=== PATIENT | female | born 1990 | race African-American/Black ===

== ENCOUNTER 2019-09-22 17:39 | Emergency (ER) | payer OTHER, SELFPAY ==
[2019-09-22 17:53] VITALS: BP 133/97; PULSE 88; RESP 18; TEMP 36.9; O2SAT 100
--- NOTE | 2019-09-22 18:10 | ED.CHESTPAIN ---
HPI - Chest Pain General Chief Complaint: Unspecified Stated Complaint: Chest Pain History of Present Illness HPI narrative: This is a 28-year-old -German female comes in complaining substernal chest pain states that it comes intermittently has been going on for the past 2 days. According to patient she started having left arm heaviness. Patient denies anything makes it better or worse patient denies having any hypertension or any cardiac issues patient denies being a smoker. Related Data Home Medications Medication Instructions Recorded Confirmed No Home Medications 09/22/19 09/22/19 Allergies Allergy/AdvReac Type Severity Reaction Status Date / Time Penicillins Allergy Unknown Hives / Verified 03/07/18 17:36 Red Face Review of Systems Review of Systems: Narrative: CONSTITUTIONAL: Denies fever, chills, or sweats. EYES: Denies visual changes, redness, or discharge. ENT: Denies rhinorrhea, congestion, sore throat, or otalgia. CARDIOVASCULAR: Reports chest pain, palpitations, or edema. RESPIRATORY: Denies cough or dyspnea. GASTROINTESTINAL: Denies abdominal pain, nausea, vomiting, or diarrhea. GENITOURINARY: Denies dysuria or hematuria. SKIN:[Denies rash or itching. MUSCULOSKELETAL:Denies back pain, joint pain, or myalgia. NEUROLOGIC: Denies headache, numbness, or weakness. PSYCHIATRIC:Denies anxiety or depression PMFSH Surgical History Surgical History (Updated 09/22/19 @ 21:32 by Micki Bush PA-C) History of Social History Social History (Updated 09/22/19 @ 21:34 by Micki Bush PA-C) Smoking status: Never smoker Substance use: never Gender identity (if verbalized by the patient): Female Comments At time as signature, I have reviewed and agree with nursing past medical, social, surgical and family history. Please see nursing chart for further information. There is no relevant family history pertinent to the presenting complaint. Exam Narrative: Exam Narrative: GENERAL:Well-appearing, well-nourished, and in no acute distress. HEAD:Normocephalic, atraumatic. EYES: PERRLA and EOMI. ENT: Nares clear, no rhinorrhea or epistaxis. Mucous membranes moist. NECK: Supple. CHEST: Clear to auscultation. No respiratory distress. HEART: Regular rate and rhythm. No murmur heard. Normal peripheral pulses. ABDOMEN: Soft, nontender, nondistended, normal active bowel sounds. EXTREMITIES: Normal range of motion. No edema. SKIN: Warm, dry, no rash. NEURO: No focal deficits. Alert and oriented x3. Essentially negative except for patient is reporting chest pain with left arm heaviness unable to duplicate the pain Course Vital Signs Vital signs: Vital Signs Temperature 98.5 F 09/22/19 17:53 Pulse Rate 88 09/22/19 17:53 Respiratory Rate 18 09/22/19 17:53 Blood Pressure 133/97 H 09/22/19 17:53 Pulse Oximetry 100 09/22/19 17:53 Temperature 98.5 F 09/22/19 17:53 Pulse Rate 88 09/22/19 17:53 Respiratory Rate 18 09/22/19 17:53 Blood Pressure 133/97 H 09/22/19 17:53 Pulse Oximetry 100 09/22/19 17:53 Discharge Plan Discharge Patient Disposition: Home, Self-Care Condition: Stable Prescriptions: No Action No Home Medications RF: 0 Interventions: Discharge Disposition Last Done: 09/22/19 18:15 Follow-up/Referrals: PHYSICIAN,POWER PLANT MANAGER [Primary Care Provider] - Discharge Date/Time: 09/22/19 18:15
--- NOTE | 2019-09-22 18:11 | PC.NURSE ---
ekg in progess and direct support staff on hold to give report to dominga miguel
--- NOTE | 2019-09-22 18:21 | ECG_ITS ---
Measurements Intervals [place] Rate: 85 P: 43 [place]: 137 QRS: 38 QRSD: 76 T: 39 QT: 376 QTc: 450 Interpretive Statements SINUS RHYTHM NORMAL ECG Electronically Signed On 09-22-2019 20:10:43 SNOWBOARD INSTRUCTOR by Wilmer Martin D.O.
== END 2019-09-22 18:15 | disposition home or self-care (01) ==
LOC: EXPCOLL 17:46
PROVIDERS: Emergency Provider Nurse Practitioner Family
DX: R07.89 Other chest pain (principal)
CPT/HCPCS: 93005; 99213; G0463

== ENCOUNTER 2019-09-22 18:37 | Emergency (ER) | payer OTHER, SELFPAY ==
--- NOTE | ~2019-09-22 | XR_ITS ---
EXAMINATION: XR chest 2V EXAM DATE: 09/22/2019 19:10 INDICATION: Left-sided chest pain. TECHNIQUE: Frontal and lateral projections of the chest obtained and reviewed. There is no prior lena dy for comparison. FINDINGS: The lungs are clear. There are no pleural effusions. The cardiomediastinal silhouette is within normal limits. There is no pneumothorax suspected. The bones and soft tissues are unremarkab le. IMPRESSION: Normal chest x-ray exam. Reviewed, dictated and finalized at location A. ARCH PROFESSOR IMPRESSION: Normal chest x-ray exam.
--- NOTE | 2019-09-22 18:38 | ECG_ITS ---
Measurements Intervals [place] Rate: 89 P: 50 [place]: 136 QRS: 35 QRSD: 80 T: 36 QT: 358 QTc: 437 Interpretive Statements SINUS RHYTHM NORMAL ECG Electronically Signed On 09-22-2019 20:10:31 MAJOR GIFTS DIRECTOR by Wilmer Martin D.O.
[2019-09-22 18:40] VITALS: BP 142/97; PULSE 90; RESP 18; TEMP 36.7; O2SAT 100
[2019-09-22 19:06] LABS: Basophils Percent Auto 0.5 % (0.2-1.2); Eosinophils Absolute Auto 0.1 K/mm3 (0-0.3); Eosinophils Percent Auto 1.9 % (0-4.4); Hematocrit 36.7 % (37.0-47.0); Hemoglobin 11.6 g/dL (12.0-15.0); Immature Granulocyte Absolute 0.02 K/mm3 (0.00-0.031); Immature Granulocyte Percent A 0.3 % (0-0.5); Lymphocytes Absolute Auto 1.81 K/mm3 (0.9-3.2); Lymphocytes Percent Auto 29.1 % (18.3-44.2); Mean Corpuscular HGB Conc 31.6 g/dl (32-36); Mean Corpuscular Hemoglobin 26.7 pg (26-34); Mean Corpuscular Volume 84.6 fl (80-100); Mean Platelet Volume 12.6 fl (7.4-10.4); Monocytes Absolute Auto 0.4 K/mm3 (0.1-0.6); Monocytes Percent Auto 6.3 % (2.6-8.5); Neutrophils Absolute Auto 3.9 K/mm3 (1.3-6.7); Neutrophils Percent Auto 61.9 % (45.5-73.1); Platelet Count Result 216 k/mm3 (150-375); Red Blood Count 4.34 M/mm3 (4.2-5.4); Red Cell Distribution Width 13.8 % (11.5-14.5); White Blood Count 6.2 K/mm3 (4.5-10.0)
[2019-09-22 19:16] LABS: INR 0.9; Partial Thromboplastin Time 28.5 SECONDS (22.3-36.8); Prothrombin Time 12.3 Seconds (11.1-14.7)
[2019-09-22 19:17] LABS: Blood Urea Nitrogen 14 mg/dL (7-17); Calcium 9.2 mg/dL (8.4-10.2); Carbon Dioxide 25 mmol/L (22-30); Chloride 99 mmol/L (98-107); Estimated CRCL calculation 84 ml/min; Estimated Glomerular Filt Rate > 60; Glucose 95 mg/dL (65-105); Potassium 3.9 mmol/L (3.4-5.0); Sodium 137 mmol/L (137-145)
[2019-09-22 19:42] LABS: Troponin I < 0.012 ng/mL (0.000-0.034)
[2019-09-22 20:34] VITALS: PULSE 106
[2019-09-22 20:36] VITALS: BP 146/101; PULSE 97; RESP 16; O2SAT 100
[2019-09-22] MEDS: ASPIRIN 81 MG CHEWABLE TABLET 324 MG PO (20:45)
--- NOTE | 2019-09-22 20:56 | PC.NURSE ---
CALLED LAB TO ADD ON D-DIMER
[2019-09-22 20:58] VITALS: BP 157/100; PULSE 82; RESP 16; O2SAT 100
[2019-09-22 21:12] LABS: D Dimer 0.27 ug/mL (<0.48)
--- NOTE | 2019-09-22 21:13 | ED.CHESTPAIN ---
HPI - Chest Pain General Chief Complaint: Chest Pain Stated Complaint: chest pain Time Seen by Provider: 09/22/19 20:37 Source: patient Mode of arrival: ambulatory Limitations: no limitations History of Present Illness HPI narrative: This is a 28 year old female that presents to the ER for chest pain x 2 days. Reports intermittent substernal chest pain that will last only for a couple seconds and then resolve on its own. Also reports that earlier she was having a weird feeling in her left arm. She was seen at the urgent care for this and sent here for further evaluation. Denies fever, cough, congestion, shortness of breath, or numbness. Related Data Home Medications Medication Instructions Recorded Confirmed No Home Medications 09/22/19 09/22/19 Allergies Allergy/AdvReac Type Severity Reaction Status Date / Time Penicillins Allergy Unknown Hives / Verified 03/07/18 17:36 Red Face Review of Systems Review of Systems: Narrative: CONSTITUTIONAL: Denies fever ENT: Denies rhinorrhea, congestion, sore throat CARDIOVASCULAR: Reports chest pain. Denies palpitations, or edema. RESPIRATORY: Denies cough or dyspnea. NEUROLOGIC: Denies numbness, or weakness. All systems reviewed & are unremarkable except as noted in HPI and below PMFSH Surgical History Surgical History (Updated 09/22/19 @ 21:32 by Micki Bush PA-C) History of Social History Social History (Updated 09/22/19 @ 21:34 by Micki Bush PA-C) Smoking status: Never smoker Substance use: never Gender identity (if verbalized by the patient): Female Exam Narrative: Exam Narrative: GENERAL: Well-appearing, well-nourished, and in no acute distress. HEAD: Normocephalic, atraumatic. EYES: EOMI. ENT: Nares clear, no rhinorrhea or epistaxis. Mucous membranes moist. Oropharynx without tonsillar hypertrophy exudate or other lesions. Bilateral TMs pearly gottlieb non-bulging NECK: Supple. No adenopathy or masses. No carotid bruits or JVD CHEST: Clear to auscultation. No respiratory distress. No wheezes rales or rhonchi HEART: Regular rate and rhythm. No murmur heard. Normal peripheral pulses. EXTREMITIES: Normal range of motion. No edema. Strength equal in bilateral upper extremities SKIN: Warm, dry, no rash. NEURO: No focal deficits. Alert and oriented x3. PSYCH: Normal mood and affect Course Vital Signs Vital signs: Vital Signs Temperature 98.1 F 09/22/19 18:40 Pulse Rate 90 09/22/19 18:40 Respiratory Rate 18 09/22/19 18:40 Blood Pressure 142/97 H 09/22/19 18:40 Pulse Oximetry 100 09/22/19 18:40 Temperature 98.1 F 09/22/19 18:40 Pulse Rate 82 09/22/19 20:58 Respiratory Rate 16 09/22/19 20:58 Blood Pressure 157/100 H 09/22/19 20:58 Pulse Oximetry 100 09/22/19 20:58 MDM - Chest Pain MDM Narrative Medical decision making narrative: Patient presents the emergency department for intermittent substernal chest pains over the last 2 days. Reports these pains only last for a couple of seconds. Patient's vitals are normal, other than mild elevation in blood pressure to the 130-140s/90s-100s. CBC with mild normocytic anemia. Metabolic panel is normal. Troponin and dimer are negative. EKG is normal. Chest x-ray without acute changes. Patient does not report any chest pain currently. Heart score is 1. Patient is stable and felt appropriate for further outpatient evaluation. She is to follow-up with her primary care doctor. Patient was given warnings to return to the ER Lab Data Attestation: I reviewed the patient's lab results. Result diagrams: 09/22/19 18:56 09/22/19 18:56 Labs: Lab Results 09/22/19 09/22/19 09/22/19 Range/Units 18:56 18:56 18:56 WBC 6.2 (4.5-10.0) K/mm3 RBC 4.34 (4.2-5.4) M/mm3 Hgb 11.6 L (12.0-15.0) g/dL Hct 36.7 L (37.0-47.0) % MCV 84.6 (80-100) fl MCH 26.7 (26-34) pg MCHC 31.6 L (32-36) g/dl RDW 13.8
[2019-09-22 22:41] VITALS: BP 136/94; PULSE 90; RESP 16; O2SAT 99
== END 2019-09-22 22:43 | disposition home or self-care (01) ==
PROVIDERS: Physician Assistant; Emergency Provider Emergency Medicine
DX: R07.2 Precordial pain (principal)
CPT/HCPCS: 36415; 71046; 80048; 84484; 85025; 85380; 85610; 85730; 93005; 99284; A9270

== ENCOUNTER 2019-11-09 19:43 | Emergency (ER) | payer OTHER, SELFPAY ==
[2019-11-09 19:51] VITALS: BP 149/82; PULSE 114; RESP 16; TEMP 37.3; O2SAT 99
--- NOTE | 2019-11-09 19:53 | ED.GENADULT ---
HPI - General Adult General Chief complaint: Abdominal Pain Stated complaint: chest/abd pain Time Seen by Provider: 11/09/19 19:53 Source: patient and RN notes reviewed Mode of arrival: ambulatory Limitations: no limitations History of Present Illness HPI narrative: 28 year old female who presents to [facility] care with intermittent episodes of upper epigastric pain radiating to her back since Friday. Patient denies any pain at present time, denies any shortness of breath, no radiating of pain to arms, no nausea or any episodes of diaphoresis. Patient states that she had episodes of upper epigastric and chest pain a month ago and was seen and evaluated in the ER with no cardiac problem identified, states has not followed up with her PCP. 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 MD complaint: upper epigastric pain Onset (ago): day(s) (4) Location: abdomen Radiation: back Severity: mild Quality: aching Pain Consistency: intermittent and now resolved Relieving factors: none Exacerbating factors: none Associated symptoms: denies other symptoms Treatments prior to arrival: none Related Data Allergies Allergy/AdvReac Type Severity Reaction Status Date / Time Penicillins Allergy Unknown Hives / Verified 03/07/18 17:36 Red Face Review of Systems Review of Systems: Narrative: CONSTITUTIONAL: Denies fever, chills, or sweats. EYES: Denies visual changes, redness, or discharge. ENT: Denies rhinorrhea, congestion, sore throat, or otalgia. CARDIOVASCULAR: Denies chest pain recently, no palpitations, or edema. RESPIRATORY: Denies cough or dyspnea. GASTROINTESTINAL: Denies abdominal pain at present intermittent episodes of upper epigastric pain radiating to back, no nausea, vomiting, or diarrhea.no feelings of heartburn or dyspepsia GENITOURINARY: Denies dysuria or hematuria. SKIN: Denies rash or itching. MUSCULOSKELETAL: Denies back pain at present, no joint pain, or myalgia. NEUROLOGIC: Denies headache, numbness, or weakness, denies any dizziness PSYCHIATRIC: Denies anxiety or depression. All systems reviewed & are unremarkable except as noted in HPI and below PMFSH Past Medical History Medical History (Updated 11/10/19 @ 19:25 by Pearl Knox NP) UTI (urinary tract infection) Surgical History Surgical History (Updated 09/22/19 @ 21:32 by Micki Bush PA-C) History of Social History Social History (Updated 11/10/19 @ 19:25 by Pearl Knox NP) Smoking status: Never smoker Substance use: never Living arrangements: with family Gender identity (if verbalized by the patient): Female Comments At time of signature, agree with nursing past medical, surgical, social history. There is no relevant family history pertinent to the presenting complaint Exam Narrative: Exam Narrative: GENERAL: Well-appearing, well-nourished, and in no acute distress. HEAD: Normocephalic, atraumatic. EYES: PERRLA and EOMI. ENT: Nares clear, no rhinorrhea or epistaxis. Mucous membranes moist. NECK: Supple.no lymphadenopathy CHEST: Clear to auscultation. No respiratory distress.SAO2 99% on room air HEART: Tachy rate and normal rhythm. No murmur heard. Normal peripheral pulses. ABDOMEN: Soft, nontender, nondistended, normal active bowel sounds, no pain on palpation to abdomen. EXTREMITIES: Normal range of motion. No edema. SKIN: Warm, dry, no rash. NEURO: No focal deficits. Alert and oriented x3. Course Vital Signs Vital signs: Vital Signs Temperature 37.3 C 11/09/19 19:51 Pulse Rate 114 H 11/09/19 19:51 Respiratory Rate 16 11/09/19 19:51 Blood Pressure 149/82 H 11/09/19 19:51 Pulse Oximetry 99 11/09/19 19:51 Temperature 37.3 C 11/09/19 19:51 Pulse Rate 114 H 04
== END 2019-11-09 20:17 | disposition home or self-care (01) ==
PROVIDERS: Emergency Provider Registered Nurse; PCP Family Medicine
DX: R10.13 Epigastric pain (principal); Z87.440 Personal history of urinary (tract) infections
CPT/HCPCS: 99213; G0463

== ENCOUNTER 2020-01-02 20:59 | Emergency (ER) | payer OTHER, SELFPAY ==
[2020-01-02 21:00] VITALS: BP 151/92; PULSE 106; RESP 18; TEMP 37.1; O2SAT 100
--- NOTE | 2020-01-02 21:17 | ECG_ITS ---
Measurements Intervals [place] Rate: 101 P: 47 [place]: 128 QRS: 20 QRSD: 86 T: 29 QT: 349 QTc: 453 Interpretive Statements SINUS TACHYCARDIA VOLTAGE CRITERIA FOR LVH DELAYED PRECORDIAL R/S TRANSITION BORDERLINE ECG Electronically Signed On 01-03-2020 7:05:02 CDT by Wilmer Martin D.O.
[2020-01-02 21:27] LABS: Basophils Percent Auto 0.4 % (0.2-1.2); Eosinophils Absolute Auto 0.1 K/mm3 (0-0.3); Eosinophils Percent Auto 1.8 % (0-4.4); Hematocrit 38.1 % (37.0-47.0); Hemoglobin 12.1 g/dL (12.0-15.0); Immature Granulocyte Absolute 0.01 K/mm3 (0.00-0.031); Immature Granulocyte Percent A 0.2 % (0-0.5); Lymphocytes Absolute Auto 1.87 K/mm3 (0.9-3.2); Lymphocytes Percent Auto 33.2 % (18.3-44.2); Mean Corpuscular HGB Conc 31.8 g/dl (32-36); Mean Corpuscular Hemoglobin 27.1 pg (26-34); Mean Corpuscular Volume 85.2 fl (80-100); Mean Platelet Volume 12.3 fl (7.4-10.4); Monocytes Absolute Auto 0.5 K/mm3 (0.1-0.6); Monocytes Percent Auto 8.2 % (2.6-8.5); Neutrophils Absolute Auto 3.2 K/mm3 (1.3-6.7); Neutrophils Percent Auto 56.2 % (45.5-73.1); Platelet Count Result 235 k/mm3 (150-375); Red Blood Count 4.47 M/mm3 (4.2-5.4); Red Cell Distribution Width 13.8 % (11.5-14.5); White Blood Count 5.6 K/mm3 (4.5-10.0)
--- NOTE | 2020-01-02 21:31 | ED.DIZZY ---
HPI - Dizziness General Chief Complaint: Dizziness Stated Complaint: dizziness Time Seen by Provider: 01/02/20 21:31 History of Present Illness HPI Narrative: She has enumerable complaints most of which are chronic. Her primary concern today is dizziness which has been present for a few days. It is mild. She says that her head just feels weird. It is worst when she moves her head. Review systems/symptoms is magaña positive so it is very difficult to parse out what is really going on. Related Data Home Medications Medication Instructions Recorded Confirmed famotidine 01/02/20 metoprolol succinate PO 01/02/20 pantoprazole PO 01/02/20 Allergies Allergy/AdvReac Type Severity Reaction Status Date / Time Penicillins Allergy Unknown Hives / Verified 01/02/20 21:08 Red Face Review of Systems Constitutional: Constitutional: Reports chills, Reports fatigue and Reports weakness Eyes: Eyes: Reports change in vision ENT: Reports dysphagia and Reports dizziness Cardiovascular: Cardiovascular: Reports chest pain Respiratory: Respiratory: Reports dyspnea Gastrointestinal: Gastrointestinal: Reports abdominal pain and Reports nausea Genitourinary: Genitourinary: Reports flank pain Musculoskeletal: Musculoskeletal: Reports back pain and Reports myalgias Integumentary/Breasts: Skin/Breast: Denies rash Neurologic: Reports dizziness, Reports numbness and Reports weakness Endocrine: Endocrine: Reports fatigue PMFSH Past Medical History Medical History UTI (urinary tract infection) Surgical History Surgical History History of Social History Social History Smoking status: Never smoker Substance use: never Gender identity (if verbalized by the patient): Female Exam Const: General: healthy appearing, no acute distress and alert Orientation/consciousness: patient oriented x3 HENMT: Head: normal to inspection Ears: TM's normal bilaterally Neck: Neck: normal visual inspection and no lymphadenopathy Chest: Chest palpation & inspection: no tenderness Resp: Effort & Inspection: normal respiratory effort Auscultation: clear to auscultation bilaterally, no rales, no rhonchi and no wheezes Cardio: Jugular venous distension: no JVD Rate: regular rate Rhythm: regular rhythm Heart sounds: no murmurs GI: Inspection: non-distended GI Palp: Yes Soft to palpation and No Tenderness to palpation present (GI) Skin: General skin exam: normal color Neuro: General: patient oriented x3, moves all extremities and CN's II-XI intact bilaterally Cranial nerves: Yes Nystagmus not present Speech: normal speech Extrem: General: no edema Psych: Appearance: well kempt Affect: normal affect Course Vital Signs Vital signs: Vital Signs Temperature 37.1 C 01/02/20 21:00 Pulse Rate 106 H 01/02/20 21:00 Respiratory Rate 18 01/02/20 21:00 Blood Pressure 151/92 H 01/02/20 21:00 Pulse Oximetry 100 01/02/20 21:00 Temperature 37.1 C 01/02/20 21:00 Pulse Rate 83 01/02/20 23:14 Respiratory Rate 20 01/02/20 23:14 Blood Pressure 128/96 H 01/02/20 23:14 Pulse Oximetry 100 01/02/20 23:14 MDM - Dizziness MDM Narrative Medical decision making narrative: She has minor vertigo. She may have some chronic rheumatological or psychiatric condition as well, but no obvious acute condition. It is extremely difficult to get a useful history due to the nearly universal affirmative answers when asked about symptoms. Medical Records Attestation: I reviewed the patient's medical records. Lab Data Attestation: I reviewed the patient's lab results. Result diagrams: 01/02/20 21:19 01/02/20 21:19 Labs: Lab Results 01/02/20 01/02/20 01/02/20 Range/Units 21:19 21:19 21:19 WBC 5.6 (4.5-1
[2020-01-02 21:38] LABS: Alanine Aminotransferase 11 U/L (4-35); Albumin Level 4.5 g/dL (3.5-5.1); Alkaline Phosphatase 69 U/L (38-126); Aspartate Amino Transferase 21 U/L (14-36); Bilirubin,Total 0.4 mg/dL (0.2-1.3); Blood Urea Nitrogen 15 mg/dL (7-17); Calcium 9.3 mg/dL (8.4-10.2); Carbon Dioxide 28 mmol/L (22-30); Chloride 102 mmol/L (98-107); Estimated CRCL calculation 74 ml/min; Estimated Glomerular Filt Rate > 60; Glucose 104 mg/dL (65-105); Potassium 3.7 mmol/L (3.4-5.0); Sodium 137 mmol/L (137-145)
[2020-01-02] MEDS: MECLIZINE HCL 25 MG TABLET PO (21:48)
[2020-01-02] MEDS: SODIUM CHLORIDE 0.9% IV 1,000 ML 999 ML IV CONT (21:48)
[2020-01-02 23:14] VITALS: BP 128/96; PULSE 83; RESP 20; O2SAT 100
== END 2020-01-02 23:15 | disposition home or self-care (01) ==
PROVIDERS: Emergency Provider Emergency Medicine; PCP Family Medicine
DX: R42 Dizziness and giddiness (principal); Z87.440 Personal history of urinary (tract) infections; R00.0 Tachycardia, unspecified; R94.31 Abnormal electrocardiogram [ECG] [EKG]
CPT/HCPCS: 36415; 80053; 84443; 85025; 93005; 96360; 99284; A9270; J7030

== ENCOUNTER 2020-02-23 21:16 | Emergency (ER) | payer OTHER, SELFPAY ==
--- NOTE | ~2020-02-23 | XR_ITS ---
EXAMINATION: XR chest 1V portable EXAM DATE: 02/23/2020 21:48 INDICATION: Chest pain rating posteriorly. Irregular heart rate. COVID 19 positive in January. TECHNIQUE: Portable AP frontal chest x-ray was obtained. Comparison is made to prior examination from 09/22/2019. FINDINGS: The lungs are clear. There are no pleural effusions. Cardiac silhouette is prominent but magnified on this AP technique. There is no pneumothorax suspected. The bones and soft tissues are unremarkable. IMPRESSION: No acute cardiopulmonary findings. Reviewed, dictated and finalized at location A.
[2020-02-23 21:21] VITALS: BP 141/91; PULSE 94; RESP 17; O2SAT 100
--- NOTE | 2020-02-23 21:30 | ED.GENADULT ---
HPI - General Adult General Chief complaint: Chest Pain Stated complaint: chest pain/SOB Time Seen by Provider: 02/23/20 21:26 Source: patient Mode of arrival: ambulatory Limitations: no limitations History of Present Illness HPI narrative: Patient is a 29-year-old female presents with back pain and chest pain that has been present since yesterday has had similar occurrences in the past. Patient notes in December she was positive for COVID and had gotten over her symptoms. Patient does note she does get frequent back pain. Patient does not take anything for her symptoms. Patient also notes she suffers from anxiety and easily gets worked up. Patient has been seen for chest pain with negative work-ups in the past . Patient on arrival in the room in no distress Related Data Home Medications Medication Instructions Recorded Confirmed famotidine 01/02/20 metoprolol succinate PO 01/02/20 pantoprazole PO 01/02/20 Allergies Allergy/AdvReac Type Severity Reaction Status Date / Time Penicillins Allergy Unknown Hives / Verified 02/23/20 21:53 Red Face Review of Systems Review of Systems: All systems reviewed & are unremarkable except as noted in HPI and below PMFSH Past Medical History Medical History UTI (urinary tract infection) Surgical History Surgical History History of Social History Social History Smoking status: Never smoker Substance use: never Gender identity (if verbalized by the patient): Female Exam Narrative: Exam Narrative: GENERAL: Well-appearing, well-nourished, and in no acute distress. HEAD: Normocephalic, atraumatic. EYES: PERRLA and EOMI. ENT: Nares clear, no rhinorrhea or epistaxis. Mucous membranes moist. CHEST: Clear to auscultation. No respiratory distress. No wheezes rales or rhonchi HEART: Regular rate and rhythm. No murmur heard. EXTREMITIES: Normal range of motion. No edema. SKIN: Warm, dry, no rash. NEURO: No focal deficits. Alert and oriented x3. Cranial nerves II through XII grossly intact PSYCH: Normal mood and affect. Course Course Emergency Course: Patient in the room in no distress felt appropriate for discharge home agreeing to follow-up with primary care Vital Signs Vital signs: Vital Signs Pulse Rate 94 02/23/20 21:21 Respiratory Rate 17 02/23/20 21:21 Blood Pressure 141/91 H 02/23/20 21:21 Pulse Oximetry 100 02/23/20 21:21 Pulse Rate 94 02/23/20 21:21 Respiratory Rate 17 02/23/20 21:21 Blood Pressure 141/91 H 02/23/20 21:21 Pulse Oximetry 100 02/23/20 21:21 Medical Decision Making MDM Narrative Medical decision making narrative: Patient in the room in no distress with likely musculoskeletal back pain no PE felt to be likely negative cardiac work-up in the past low likelihood for acute coronary syndrome felt appropriate for outpatient reevaluation patient with low risk PERC score PE felt unlikely. Patient without pneumonia or URI symptoms Vital Signs Vital Signs: Vital Signs Pulse Rate 94 02/23/20 21:21 Respiratory Rate 17 02/23/20 21:21 Blood Pressure 141/91 H 02/23/20 21:21 Pulse Oximetry 100 02/23/20 21:21 Pulse Rate 94 02/23/20 21:21 Respiratory Rate 17 02/23/20 21:21 Blood Pressure 141/91 H 02/23/20 21:21 Pulse Oximetry 100 02/23/20 21:21 Imaging Data Radiologist's impression: ITS Impressions Chest X-Ray 02/23/20 21:56 IMPRESSION: No acute cardiopulmonary findings. ECG Data EKG #1: ECG completion date: 02/23/20 ECG completion time: 21:30 EKG Interpretation: tachycardia, sinus rhythm, non-specific ST changes, normal QRS and NL axis Discharge Plan Discharge Clinical Impression: Chest pain Patient Disposition: Home, Self-Care Condition: Stable
--- NOTE | 2020-02-23 21:50 | ECG_ITS ---
Measurements Intervals [place] Rate: 101 P: 34 [place]: 137 QRS: 29 QRSD: 73 T: 19 QT: 345 QTc: 448 Interpretive Statements SINUS TACHYCARDIA BORDERLINE ECG Electronically Signed On 02-25-2020 15:27:34 CDT by Wilmer Martin D.O.
[2020-02-23 22:06] VITALS: TEMP 37
[2020-02-23 22:11] VITALS: BP 145/100; PULSE 98; RESP 20; O2SAT 100
== END 2020-02-23 22:13 | disposition home or self-care (01) ==
PROVIDERS: Emergency Provider Emergency Medicine; PCP Family Medicine
DX: R07.9 Chest pain, unspecified (principal)
CPT/HCPCS: 71045; 93005; 99283

== ENCOUNTER 2020-05-02 10:41 | Emergency (ER) | payer OTHER, SELFPAY ==
[2020-05-02 10:45] VITALS: BP 128/86; PULSE 97; RESP 18; TEMP 36.4; O2SAT 100
--- NOTE | 2020-05-02 11:47 | ED.GENADULT ---
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 Related Data Allergies Allergy/AdvReac Type Severity Reaction Status Date / Time Penicillins Allergy Unknown Hives / Verified 05/02/20 11:22 Red Face Review of Systems Review of Systems: All systems reviewed & are unremarkable except as noted in HPI and below PMFSH Past Medical History Medical History (Updated 05/02/20 @ 11:52 by Kenyon Waite PA-C) UTI (urinary tract infection) Surgical History Surgical History History of Social History Social History Smoking status: Never smoker Substance use: never Gender identity (if verbalized by the patient): Female Exam Narrative: Exam Narrative: GENERAL: Well-appearing, well-nourished, and in no acute distress. HEAD: Normocephalic, atraumatic. EYES: PERRLA and EOMI. ENT: Nares clear, no rhinorrhea or epistaxis. Mucous membranes moist. NECK: Supple. No adenopathy or masses. No carotid bruits or JVD CHEST: Clear to auscultation. No respiratory distress. No wheezes rales or rhonchi HEART: Regular rate and rhythm. No murmur heard. EXTREMITIES: Normal range of motion. No edema. Midline cervical tenderness at C6-7 no deformities noted SKIN: Warm, dry, no rash. NEURO: No focal deficits. Alert and oriented x3. Cranial nerves II through XII grossly intact. Normal speech and gait PSYCH: Normal mood and affect. Course Course Emergency Course: Patient in the room in no distress will be referred back to primary care tried with anti-inflammatories and muscle relaxers in the interim provided with reasons to return felt appropriate for outpatient reevaluation Vital Signs Vital signs: Vital Signs Temperature 97.5 F L 05/02/20 10:45 Pulse Rate 97 05/02/20 10:45 Respiratory Rate 18 05/02/20 10:45 Blood Pressure 128/86 05/02/20 10:45 Pulse Oximetry 100 05/02/20 10:45 Temperature 97.5 F L 05/02/20 10:45 Pulse Rate 97 05/02/20 10:45 Respiratory Rate 18 05/02/20 10:45 Blood Pressure 128/86 05/02/20 10:45 Pulse Oximetry 100 05/02/20 10:45 Medical Decision Making MDM Narrative Medical decision making narrative: Patients injury or pain is consistent with musculoskeletal etiology. No signs of neurological or vascular compromise on exam. Compartments and tisues are soft without signs of compartment syndrome. No focal neurologic deficits on exam pain is felt appropriate for further evaluation on an outpatient basis. Vital Signs Vital Signs: Vital Signs Temperature 97.5 F L 05/02/20 10:45 Pulse Rate 97 05/02/20 10:45 Respiratory Rate 18 05/02/20 10:45 Blood Pressure 128/86 05/02/20 10:45 Pulse Oximetry 100 05/02/20 10:45 Temperature 97.5 F L 05/02/20 10:45 Pulse Rate 97 05/02/20 10:45 Respiratory Rate 18 05/02/20 10:45 Blood Pressure 128/86 05/02/20 10:45 Pulse Oximetry 100 05/02/20 10:45 Discharge Plan Discharge Clinical Impression: Cervical radiculopathy Patient Disposition: Home, Self-Care Condition: Stable Instructions: Antibiotic Form, Cervical Radiculopa
[2020-05-02 12:10] VITALS: BP 125/93; PULSE 88; RESP 18; O2SAT 100
== END 2020-05-02 12:11 | disposition home or self-care (01) ==
LOC: ANHED 11:53
PROVIDERS: Emergency Provider Emergency Medicine; PCP Emergency Medicine
DX: M54.12 Radiculopathy, cervical region (principal); Z87.440 Personal history of urinary (tract) infections
CPT/HCPCS: 99283

== ENCOUNTER 2020-07-17 07:48 | Emergency (ER) | payer OTHER, SELFPAY ==
[2020-07-17] VITALS (7 sets, daily range): BP systolic 127–168; BP diastolic 85–107; PULSE 84–103; RESP 13–21; TEMP 36.8; O2SAT 98–100
--- NOTE | ~2020-07-17 | XR_ITS ---
EXAMINATION: XR chest 2V EXAM DATE: 07/17/2020 08:27 INDICATION: chest pressure, elevated bp. TECHNIQUE: Frontal and lateral projections of the chest obtained and reviewed. Comparison is made to prior examination from 02/23/2020. FINDINGS: The lungs are clear. There are no pleural effusions. The cardiomediastinal silhouette is within normal limits. There is no pneumothorax suspected. The bones and soft tissues are unremarkab le. IMPRESSION: Normal chest x-ray exam. Reviewed, dictated and finalized at location B. R[facility] CHECKER IMPRESSION: Normal chest x-ray exam.
--- NOTE | 2020-07-17 08:02 | ECG_ITS ---
Measurements Intervals [place] Rate: 103 P: 41 NC: 136 QRS: 20 QRSD: 75 T: 18 QT: 355 QTc: 465 Interpretive Statements SINUS TACHYCARDIA DELAYED PRECORDIAL R/S TRANSITION BORDERLINE T WAVE ABNORMALITY- ANTERIOR LEADS BASELINE ARTIFACT- I, II, III, AVR, AVL BORDERLINE ECG Electronically Signed On 07-17-2020 9:52:34 CRYPTOLOGIC LINGUIST by Wilmer Martin D.O.
[2020-07-17 08:43] LABS: Basophils Percent Auto 0.6 % (0.2-1.2); Eosinophils Absolute Auto 0.1 K/mm3 (0-0.3); Eosinophils Percent Auto 1.8 % (0-4.4); Hemoglobin 11.6 g/dL (12.0-15.0); Immature Granulocyte Absolute 0.01 K/mm3 (0.00-0.031); Immature Granulocyte Percent A 0.3 % (0-0.5); Lymphocytes Absolute Auto 1.02 K/mm3 (0.9-3.2); Lymphocytes Percent Auto 31.3 % (18.3-44.2); Mean Corpuscular HGB Conc 32.2 g/dl (32-36); Mean Corpuscular Hemoglobin 27.6 pg (26-34); Mean Corpuscular Volume 85.7 fl (80-100); Mean Platelet Volume 11.9 fl (7.4-10.4); Monocytes Absolute Auto 0.3 K/mm3 (0.1-0.6); Monocytes Percent Auto 7.7 % (2.6-8.5); Neutrophils Absolute Auto 1.9 K/mm3 (1.3-6.7); Neutrophils Percent Auto 58.3 % (45.5-73.1); Platelet Count Result 239 k/mm3 (150-375); Red Cell Distribution Width 13.4 % (11.5-14.5); White Blood Count 3.3 K/mm3 (4.5-10.0)
--- NOTE | 2020-07-17 08:45 | ED.CHESTPAIN ---
HPI - Chest Pain General Chief Complaint: Chest Pain Stated Complaint: high blood pressure Time Seen by Provider: 07/17/20 08:36 Source: patient Mode of arrival: ambulatory Limitations: no limitations History of Present Illness HPI narrative: Patient presents with heart racing and elevated blood pressure last night after drinking red bull. Patient lives with 2 children, has been on the road 3 weeks a month. Some stress lately. Patient did not take her blood pressure medication prior to arrival. Currently patient feeling okay. Patient is telling me that she have history of intermittent chest pain for over 1 year and her physician does not listen to her. Also telling me that she have intermittent joint and muscle aches for years and her physician does not listen to her. Patient denies any fever, chills, nausea, vomiting, chest pain, shortness of breath, headache or sore throat. Related Data Home Medications Medication Instructions Recorded Confirmed metoprolol succinate PO 07/17/20 Allergies Allergy/AdvReac Type Severity Reaction Status Date / Time Penicillins Allergy Unknown Hives / Verified 07/17/20 08:08 Red Face Review of Systems Review of Systems: Narrative: CONSTITUTIONAL: Denies fever, chills, or sweats. EYES: Denies visual changes, redness, or discharge. ENT: Denies rhinorrhea, congestion, sore throat, or otalgia. CARDIOVASCULAR: Denies chest pain, palpitations, or edema. RESPIRATORY: Denies cough or dyspnea. GASTROINTESTINAL: Denies abdominal pain, nausea, vomiting, or diarrhea. GENITOURINARY: Denies dysuria or hematuria. SKIN: Denies rash or itching. MUSCULOSKELETAL: Denies back pain, joint pain, or myalgia. NEUROLOGIC: Denies headache, numbness, or weakness. PSYCHIATRIC: Denies anxiety or depression. PMFSH Past Medical History Medical History (Updated 07/17/20 @ 09:40 by Ashanti English MD) UTI (urinary tract infection) Surgical History Surgical History History of Social History Social History Smoking status: Never smoker Substance use: never Gender identity (if verbalized by the patient): Female Exam Narrative: Exam Narrative: General appearance: Well-developed, well-nourished Skin: Normal color Head: Normocephalic, nontraumatic Eyes: Clear conjunctiva ENT: Oropharynx normal, ears normal, nose normal Neck: Supple, nontender Chest and respiratory: Airway patent, no respiratory distress, no accessory muscle use Heart: Regular rate/rhythm Abdomen: Soft, nontender, no organomegaly, quiet bowel sounds Vascular: Normal peripheral pulses, normal capillary refill. Musculoskeletal: Normal range of motion, nontender back Neurologic: Alert and oriented ?3, CONSULTING IT ARCHITECT is normal as tested, no gross motor deficit Course Course Emergency Course: Stable Vital Signs Vital signs: Vital Signs Temperature 36.8 C 07/17/20 07:56 Pulse Rate 103 H 07/17/20 07:56 Respiratory Rate 16 07/17/20 07:56 Blood Pressure 168/107 H 07/17/20 07:56 Pulse Oximetry 98 07/17/20 07:56 Temperature 36.8 C 07/17/20 07:56 Pulse Rate 89 07/17/20 08:23 Respiratory Rate 14 07/17/20 08:23 Blood Pressure 147/105 H 07/17/20 08:23 Pulse Oximetry 100 07/17/20 08:23 MDM - Chest Pain MDM Narrative Medical decision making narrative: Patient presents with palpitation, chest pain, worse after drinking red bull last night. Labs, chest x-ray, EKG ordered. Further plan to follow Differential Diagnosis Differential diagnosis: Likely other (Stress, anxiety, Pletal induced tachycardia and hypertension. Medicatio
[2020-07-17 08:53] LABS: INR 0.9; Prothrombin Time 13.1 Seconds (11.1-14.7)
[2020-07-17 08:54] LABS: Partial Thromboplastin Time 27.8 SECONDS (22.3-36.8)
[2020-07-17 08:55] LABS: Anion Gap 5 mmol/L (8-16); Blood Urea Nitrogen 11 mg/dL (7-17); Calcium 8.8 mg/dL (8.4-10.2); Carbon Dioxide 29 mmol/L (22-30); Chloride 105 mmol/L (98-107); Estimated CRCL calculation 83 ml/min; Estimated Glomerular Filt Rate > 60; Glucose 110 mg/dL (65-105); Potassium 3.8 mmol/L (3.4-5.0); Sodium 139 mmol/L (137-145)
[2020-07-17 09:06] LABS: Troponin I < 0.012 ng/mL (0.000-0.034)
== END 2020-07-17 10:20 | disposition home or self-care (01) ==
PROVIDERS: Emergency Provider Emergency Medicine; PCP Family Medicine
DX: R00.2 Palpitations (principal); R07.9 Chest pain, unspecified; R00.0 Tachycardia, unspecified; R94.31 Abnormal electrocardiogram [ECG] [EKG]
CPT/HCPCS: 36415; 71046; 80048; 84484; 85025; 85610; 85730; 93005; 99284

== ENCOUNTER 2020-12-04 13:32 | Emergency (ER) | payer OTHER, SELFPAY ==
[2020-12-04 13:42] VITALS: BP 141/96; PULSE 108; RESP 16; TEMP 36.3; O2SAT 100
--- NOTE | 2020-12-04 13:52 | ED.FEMALEGU ---
HPI - Female Genitourinary General Chief complaint: Urogenital-Female Stated complaint: UTI Time Seen by Provider: 12/04/20 13:52 Source: patient and RN notes reviewed Mode of arrival: ambulatory Limitations: no limitations History of Present Illness HPI Narrative: 30-year-old female presents with concern for left flank pain and urine frequency. Reports symptoms started 3 days ago. She denies injury, abdominal pain, nausea, vomiting. Denies dysuria, hematuria, abnormal vaginal bleeding or discharge. Reports dark-colored and foul-smelling urine. She denies intervention. MD elicited complaint: UTI Related Data Home Medications Medication Instructions Recorded Confirmed metronidazole 500 mg PO BID 12/04/20 12/04/20 Allergies Allergy/AdvReac Type Severity Reaction Status Date / Time Penicillins Allergy Unknown Hives / Verified 12/04/20 13:49 Red Face Review of Systems Review of Systems: Narrative: CONSTITUTIONAL: Denies malaise, chills, sweats, or fever. GASTROINTESTINAL: Denies abdominal pain, nausea, vomiting, diarrhea GENITOURINARY: Denies urgency, dysuria or hematuria. Reports left flank pain and urinary frequency SKIN: Denies rash or itching. MUSCULOSKELETAL: Denies myalgia. All systems reviewed & are unremarkable except as noted in HPI and below PMFSH Past Medical History Medical History (Updated 12/04/20 @ 13:55 by Bobbi Payton NP) UTI (urinary tract infection) Surgical History Surgical History History of Social History Social History Smoking status: Never smoker Substance use: never Gender identity (if verbalized by the patient): Female Comments At time of signature, agree with nursing past medical, surgical, social and family history. There is no relevant family history pertinent to the presenting complaint Exam Narrative: Exam Narrative: GENERAL: Well-appearing, well-nourished, and in no acute distress. HEAD: Normocephalic. EYES: PERRLA, conjunctivae clear. NECK: Supple. No lymphadenopathy CHEST: Clear to auscultation. No respiratory distress. HEART: Regular rate and rhythm. ABDOMEN: Soft, nontender upon palpation, nondistended, normal active bowel sounds, no palpable or pulsatile masses, no guarding. No CVA tenderness SKIN: Warm, dry, no rash. NEURO: Alert and oriented x3. PSYCH: Normal mood and affect Course Course Emergency Course: Patient is aware of diagnosis, understands and agrees to treatment plan. Anticipatory guidance given. Patient agrees to follow-up as directed and is aware of reasons to seek care at the emergency department. Portions of this record may have been created with voice recognition software Vital Signs Vital signs: Vital Signs Temperature 97.4 F L 12/04/20 13:42 Pulse Rate 108 H 12/04/20 13:42 Respiratory Rate 16 12/04/20 13:42 Blood Pressure 141/96 H 12/04/20 13:42 Pulse Oximetry 100 12/04/20 13:42 Temperature 97.4 F L 12/04/20 13:42 Pulse Rate 108 H 12/04/20 13:42 Respiratory Rate 16 12/04/20 13:42 Blood Pressure 141/96 H 12/04/20 13:42 Pulse Oximetry 100 12/04/20 13:42 Reviewed. Patient has been instructed to follow up with her primary care provider within the next week regarding her elevated blood pressure today. MDM - Female Genitourinary MDM Narrative Medical decision making narrative: Exam findings and UA show no acute concerns or changes; patient is non-toxic appearing and is in no distress. Patient is appropriate for outpatient treatment and follow-up. Differential Diagnosis Differential diagnosis: Likely urinary tract infection, bacterial vaginosis and cystitis Lab Data Labs: Urine Glucose Negative Reference Range: Negative Urine Bilirubin Negative Reference
== END 2020-12-04 14:08 | disposition home or self-care (01) ==
PROVIDERS: Emergency Provider Nurse Practitioner; PCP Family Medicine
DX: R35.0 Frequency of micturition (principal); R10.9 Unspecified abdominal pain
CPT/HCPCS: 81003; 87077; 87086; 87088; 99213; G0463

== ENCOUNTER 2021-06-20 14:51 | Emergency (ER) | payer OTHER, SELFPAY ==
[2021-06-20 15:04] VITALS: BP 140/95; PULSE 98; RESP 16; TEMP 37.2; O2SAT 99
--- NOTE | 2021-06-20 15:40 | ED.GENADULT ---
HPI - General Adult General Chief complaint: Upper Respiratory Infection Stated complaint: sinus infection Source: patient Mode of arrival: ambulatory Limitations: no limitations History of Present Illness HPI narrative: Patient is a 30-year-old -[place] female presents to the [facility] via POV for evaluation of upper respiratory symptoms that have been present for approximately 6 days. Additionally, she reports frontal headache, sore throat, nasal congestion, rhinorrhea, dry cough, exudates, and bilateral ear pain. Mucinex provides minimal relief. Symptoms worsen at night. Patient reports she is fully vaccinated against Covid. Negative rapid Covid test yesterday. She states she was exposed to her son who was exhibiting similar signs and symptoms approximately 1 week ago. He tested negative for Covid as well. Related Data Allergies Allergy/AdvReac Type Severity Reaction Status Date / Time Penicillins Allergy Intermediate Hives / Verified 06/20/21 15:22 Red Face Review of Systems Review of Systems: Denies history of hypertension, renal insufficiency, diabetes mellitus, COPD, bronchitis, asthma, and pneumonia. Denies current/past tobacco use. Pertinent negatives: fever, sweats, chills, change in appetite, fatigue, skin color changes, severe persistent headaches, dizziness, lymphadenopathy, sinus problems, ear pain/drainage, chest pain, heart murmurs, heart palpitations, shortness of breath, wheezing, cyanosis, hemoptysis, hoarseness, orthopnea, pleuritic pain, nausea, vomiting, diarrhea, and myalgias. PMFSH Past Medical History Medical History UTI (urinary tract infection) Surgical History Surgical History History of Social History Social History Smoking status: Never smoker Substance use: never Gender identity (if verbalized by the patient): Female Comments I have reviewed and agree with the patient's past medical, surgical, social, and family hx as documented by the RN. There is no relevant family history pertinent to the presenting complaint. Exam Narrative: GENERAL: Well-appearing, well-nourished, and in no acute distress. HEAD: Normocephalic, atraumatic. No sinus tenderness or facial swelling appreciated. EYES: PERRLA and EOMI. No evidence of erythema, swelling, or drainage. ENT: Bilateral external ears and ear canals normal. Bilateral TMs are normal.No TM perforation. Moderate amount of clear nasal drainage noted to bilateral nares. Nares clear, no rhinorrhea or epistaxis. Bilateral turbinates with erythema and swelling. Mucous membranes moist and pink. Uvula is midline without erythema and swelling. Bilateral tonsils are moderately erythematous and edematous. No evidence of petechial rash, cobblestoning, lesions, ulcers, exudates, peritonsillar abscess, tenting, or drooling. Breath odor and voice normal. NECK: Supple. No Lymphadenopathy or nuchal rigidity appreciated. CHEST: Bilateral lung sellers are clear to auscultation. No respiratory distress. No evidence of cough or pleuritic cp upon examination. HEART: Regular rate and rhythm. No murmur, gallop, or rub heard. EXTREMITIES: Normal range of motion. No edema. SKIN: Warm, dry, no rash. NEURO: No focal deficits. Alert and oriented x3. Course Vital Signs Vital signs: Vital Signs Temperature 98.9 F 06/20/21 15:04 Pulse Rate 98 06/20/21 15:04 Respiratory Rate 16 06/20/21 15:04 Blood Pressure 140/95 H 06/20/21 15:04 Pulse Oximetry 99 06/20/21 15:04 Temperature 98.9 F 06/20/21 15:04 Pulse Rate 98 06/20/21 15:04 Respiratory Rate 16 06/20/21 15:04 Blood Pressure 140/95 H 06/20/21 15:04 Pulse Oximetry 99 06/20/21 15:04 Due to an elevated blood pressure, I had a detailed discussion with the patient and/or guardian reg
== END 2021-06-20 15:41 | disposition home or self-care (01) ==
PROVIDERS: Emergency Provider Nurse Practitioner Family; PCP Family Medicine
DX: J06.9 Acute upper respiratory infection, unspecified (principal)
CPT/HCPCS: 87081; 87804; 87880; 99213; G0463

== ENCOUNTER 2021-08-03 08:50 | Emergency (ER) | payer OTHER, SELFPAY ==
[2021-08-03 08:55] VITALS: BP 149/104; PULSE 105; RESP 18; TEMP 36.4; O2SAT 100
--- NOTE | 2021-08-03 09:07 | ED.URI ---
HPI - URI/Sore Throat General Chief Complaint: Upper Respiratory Infection Stated Complaint: Ear Pain,Sore Throat Time Seen by Provider: 08/03/21 09:20 Source: patient and RN notes reviewed Mode of arrival: ambulatory Limitations: no limitations History of Present Illness HPI Narrative: 30-year-old female presents with concern for cough, sore throat, ear pain. She reports symptoms started 8 days ago. Reports she was seen in emergency room for her cough. She was given a albuterol, steroid and a Z-Sebastian. She reports those medications are finished and her symptoms remained. MD elicited complaint: cough and sore throat Related Data Allergies Allergy/AdvReac Type Severity Reaction Status Date / Time Penicillins Allergy Intermediate Hives / Verified 08/03/21 09:26 Red Face Review of Systems Review of Systems: CONSTITUTIONAL: Denies malaise, chills, sweats, or fever. EYES: Denies visual changes, redness, or discharge. ENT: Denies rhinorrhea, congestion, sinus pain. Reports otalgia and sore throat. CARDIOVASCULAR: Denies chest pain, palpitations, or edema. RESPIRATORY: Reports cough. Denies dyspnea. GASTROINTESTINAL: Denies abdominal pain, nausea, vomiting, diarrhea SKIN: Denies rash or itching. MUSCULOSKELETAL: Denies myalgia. NEUROLOGIC: Denies headache. All systems reviewed & are unremarkable except as noted in HPI and below PMFSH Past Medical History Medical History (Updated 08/03/21 @ 10:15 by Bobbi Payton NP) UTI (urinary tract infection) Surgical History Surgical History History of Social History Social History Smoking status: Never smoker Substance use: never Gender identity (if verbalized by the patient): Female Comments At time of signature, agree with nursing past medical, surgical, social and family history. There is no relevant family history pertinent to the presenting complaint Exam Narrative: GENERAL: Well-appearing, well-nourished, and in no acute distress. HEAD: Normocephalic EYES: PERRLA, conjunctivae clear ENT: Nares clear, clear discharge. Mucous membranes moist. TM pearly gottlieb with dull light reflex bilaterally; no tragal tenderness. Oropharynx not erythematous without lesions. Tonsils not enlarged and without exudate, no drooling, no hoarseness, no trismus, uvula midline. NECK: Supple. No lymphadenopathy CHEST: Clear to auscultation, breath sounds equal. No wheezing, rhonchi, rales, or stridor. No respiratory distress, speaks in full sentences. HEART: Regular rate and rhythm. No murmur heard. SKIN: Warm, dry, no rash. NEURO: Alert and oriented x3. PSYCH: Normal mood and affect Course Course Emergency Course: Patient is aware of diagnosis, understands and agrees to treatment plan. Anticipatory guidance given. Patient agrees to follow-up as directed and is aware of reasons to seek care at the emergency department. Portions of this record may have been created with voice recognition software Level of Care: Express Care Visit Vital Signs Vital signs: Reviewed. MDM - URI/Sore Throat MDM Narrative Medical decision making narrative: Differential diagnosis considered: Richards virus, strep pharyngitis, allergic rhinitis, upper respiratory tract infection, sinusitis, rhinosinusitis, nasopharyngitis. viral pharyngitis, otitis media, otitis externa, pneumonia, bronchitis, viral cough syndrome, viral syndrome, and influenza. Exam findings show no acute concerns or changes; patient is non-toxic appearing and is in no distress. Patient is appropriate for outpatient treatment and follow-up. Lab Data Attestation: I reviewed the patient's lab results. Critical Care Time Critical Care Time Critical Care Time: No Discharge Plan Discharge Clinical Impression: Upper respiratory infection Qualifiers: URI type: unspecified viral URI Qualified Code(s): J06.9 - Acute upper
[2021-08-04 11:30] LABS: SARS-CoV-2 RNA PCR Negative
== END 2021-08-03 10:25 | disposition home or self-care (01) ==
PROVIDERS: Emergency Provider Nurse Practitioner; PCP Family Medicine
DX: J06.9 Acute upper respiratory infection, unspecified (principal); Z20.822 Contact with and (suspected) exposure to COVID-19; Z86.16 Personal history of COVID-19
CPT/HCPCS: 87426; 99213; C9803; G0463; U0003; U0005

== ENCOUNTER 2021-09-16 22:07 | Emergency (ER) | payer OTHER, SELFPAY ==
[2021-09-16 22:10] VITALS: BP 152/105; PULSE 97; RESP 17; TEMP 36.4; O2SAT 99
--- NOTE | 2021-09-16 22:48 | ED.NAVMDI ---
HPI - Nausea/Vomiting/Diarrhea General Chief complaint: Nausea/Vomiting/Diarrhea Stated complaint: Abd pain, nausea Time Seen by Provider: 09/16/21 22:21 Source: patient, RN notes reviewed and old records reviewed Mode of arrival: ambulatory Limitations: no limitations History of Present Illness HPI Narrative: This is a 30 year old female who presents for evaluation of intermittent abdominal discomfort. She states starting 2 weeks ago she developed abdominal discomfort. She was having abdominal bloating and some loose stools so she went to [facility] 09/11/21 for evaluation. She had unremarkable labs and unremarkable CT abdomen and pelvis. She was discharged with bentyl. She is complaining of constipation now with nausea. She is having small BM but she feels like she needs to go more. She denies abdominal pain currently. She denies fever or chills. She has come for second opinion. 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 Related Data Allergies Allergy/AdvReac Type Severity Reaction Status Date / Time Penicillins Allergy Intermediate Hives / Verified 09/16/21 22:50 Red Face Review of Systems Review of Systems: All systems reviewed & are unremarkable except as noted in HPI and below PMFSH Past Medical History Medical History (Updated 09/17/21 @ 00:36 by Vivi Martinez MD) GERD (gastroesophageal reflux disease) IBS (irritable bowel syndrome) UTI (urinary tract infection) Surgical History Surgical History History of Social History Social History Smoking status: Never smoker Substance use: never Gender identity (if verbalized by the patient): Female Exam Const: General: no acute distress and alert Orientation/consciousness: patient oriented x3 Eyes: EOM: EOMs intact bilaterally Resp: Effort & Inspection: normal respiratory effort and no retractions Auscultation: clear to auscultation bilaterally Cardio: Rate: regular rate Rhythm: regular rhythm Heart sounds: no murmurs GI: GI Palp: Yes Soft to palpation, Yes Tenderness to palpation present (GI) (RUQ) and No Guarding due to palpation present (GI) Auscultation: normal bowel sounds Skin: General skin exam: normal color Rashes: no rashes Neuro: General: patient oriented x3, moves all extremities and CN's II-XI intact bilaterally Course Reevaluation(s) Reevaluation #1: PAtient states she is not having abdominal pain . She is also denying UTI symptoms. She thinks she may be developing BV but she is declining pelvic examination to take swabs. she reports vaginal order. She also declines rectal exam to check impaction. Labs are unremarkable. I reviewed labs and [facility] from [facility] on patient tasia. I do not think examination or symptoms warrant repeat CT a. I have explained to patient. Date: 09/17/21 Time: 00:33 Vital Signs Vital signs: Vital Signs Temperature 97.5 F L 09/16/21 22:10 Pulse Rate 97 09/16/21 22:10 Respiratory Rate 17 09/16/21 22:10 Blood Pressure 152/105 H 09/16/21 22:10 Pulse Oximetry 99 09/16/21 22:10 Temperature 97.5 F L 09/16/21 22:10 Pulse Rate 100 09/16/21 23:51 Respiratory Rate 17 09/16/21 22:10 Blood Pressure 140/100 H 09/16/21 23:51 Pulse Oximetry 99 09/16/21 22:10 MDM - Nausea/Vomiting/Diarrhea Medical Records Attestation: I reviewed the patient's medical records. Lab Data Attestation: I reviewed the patient's lab results. Result diagrams: 09/16/21 23:01 09/16/21 23:01 Labs: Lab Results 09/16/21 09/16/21 09/16/21 Range/Units 23:01 23:01 23:01 WBC 5.5 (4.5-10.0) K/mm3 RBC 3.99 L (4.2-5.4) M/mm3 Hgb 11.3 L (12.0-15.0) g/dL Hct 34.3 L (37.0-47.0) % MCV 86.0 (80-100) fl MCH 28.3 (26-34) pg MCHC 32.9 (32-36) g/dl RDW 13.2 (11.5-14.5)
[2021-09-16] MEDS: PANTOPRAZOLE SODIUM IV 40 MG VIAL IV PUSH (23:00)
[2021-09-16 23:12] LABS: Basophils Percent Auto 0.4 % (0.2-1.2); Eosinophils Absolute Auto 0.1 K/mm3 (0-0.3); Eosinophils Percent Auto 0.9 % (0-4.4); Hematocrit 34.3 % (37.0-47.0); Hemoglobin 11.3 g/dL (12.0-15.0); Immature Granulocyte Absolute 0.01 K/mm3 (0.00-0.031); Immature Granulocyte Percent A 0.2 % (0-0.5); Lymphocytes Percent Auto 27.5 % (18.3-44.2); Mean Corpuscular HGB Conc 32.9 g/dl (32-36); Mean Corpuscular Hemoglobin 28.3 pg (26-34); Mean Platelet Volume 12.3 fl (7.4-10.4); Monocytes Absolute Auto 0.4 K/mm3 (0.1-0.6); Monocytes Percent Auto 7.9 % (2.6-8.5); Neutrophils Absolute Auto 3.5 K/mm3 (1.3-6.7); Neutrophils Percent Auto 63.1 % (45.5-73.1); Platelet Count Result 209 k/mm3 (150-375); Red Blood Count 3.99 M/mm3 (4.2-5.4); Red Cell Distribution Width 13.2 % (11.5-14.5); White Blood Count 5.5 K/mm3 (4.5-10.0)
[2021-09-16 23:16] LABS: Add Urine Microscopic? YES; Appearance Urine Cloudy (Clear); Bacteria Urine Trace /hpf; Bilirubin Urine Negative (Negative); Blood Urine 1+ (Negative); Color Urine Straw (Yellow); Glucose Urine UA Negative (Negative); Ketones Urine Negative (Negative); Leukocyte Esterase Ur 3+ LEU/UL (Negative); Nitrate Urine Negative (Negative); Protein Urine Negative (Negative); Squamous Epithelial Cell Urine Many /hpf (Few); Urobilinogen Urine Negative mg/dL (<2.0)
[2021-09-16 23:18] LABS: Specific Grav Ur 1.004 (1.001-1.035)
[2021-09-16 23:22] LABS: Alanine Aminotransferase 13 U/L (4-35); Albumin Level 4.2 g/dL (3.5-5.1); Alkaline Phosphatase 63 U/L (38-126); Anion Gap 6 mmol/L (8-16); Aspartate Amino Transferase 21 U/L (14-36); Bilirubin,Total 0.3 mg/dL (0.2-1.3); Blood Urea Nitrogen 6 mg/dL (7-17); Calcium 8.6 mg/dL (8.4-10.2); Carbon Dioxide 27 mmol/L (22-30); Chloride 105 mmol/L (98-107); Estimated Glomerular Filt Rate > 60; Glucose 100 mg/dL (65-110); Lipase 53 U/L (23-300); Potassium 3.4 mmol/L (3.4-5.0); Sodium 138 mmol/L (137-145)
[2021-09-16 23:49] VITALS: BP 149/99; BP 153/98; PULSE 88; PULSE 91
[2021-09-16 23:51] VITALS: BP 140/100; PULSE 100
== END 2021-09-17 01:00 | disposition home or self-care (01) ==
PROVIDERS: Emergency Provider General Practice; PCP Family Medicine
DX: K59.00 Constipation, unspecified (principal); K21.9 Gastro-esophageal reflux disease without esophagitis; K58.9 Irritable bowel syndrome, unspecified; Z87.440 Personal history of urinary (tract) infections
CPT/HCPCS: 36415; 80053; 81001; 81025; 83690; 85025; 87086; 87088; 96374; 99284; C9113

== ENCOUNTER 2021-10-08 01:21 | Emergency (ER) | payer OTHER, SELFPAY ==
[2021-10-08 01:25] VITALS: BP 148/98; PULSE 87; RESP 18; TEMP 36.3; O2SAT 100
[2021-10-08] MEDS: KETOROLAC (*BKC) 60 MG/2 ML VIAL IM (02:41)
[2021-10-08 02:42] VITALS: BP 136/98; PULSE 82; RESP 16; O2SAT 98
--- NOTE | 2021-10-08 02:52 | ED.EAR ---
HPI - Ear Problem General Chief complaint: Ear <RENARD Nichole Last Filed: 10/08/21 03:23> Stated complaint: bilat ear pain <RENARD Nichole Last Filed: 10/08/21 03:23> Time Seen by Provider: 10/08/21 01:40 <RENARD Nichole Last Filed: 10/08/21 03:23> Source: patient <RENARD Nichole Last Filed: 10/08/21 03:23> Mode of arrival: ambulatory <RENARD Nichole Last Filed: 10/08/21 03:23> Limitations: no limitations <RENARD Nichole Last Filed: 10/08/21 03:23> History of Present Illness HPI Narrative: Patient is a 30-year-old female who presents to the ED with report of bilateral ear/jaw pain. Patient reports she has had been having pain for the past 2 weeks. The pain comes and goes and has not been constant. It is aggravated with opening her jaw wide or yawning. She states she feels a cracking and popping of her jaw when she opens her mouth wide. Denies any otorrhea, rhinorrhea, congestion, cough. She was scheduled to see a ENT specialist last week due to Hx of enlarged tonsils, but her appointment was canceled and rescheduled for November. She has been taking Tylenol for this at home. She tried taking ibuprofen but had had abdominal issues with this so has only been taking Tylenol since. No fevers, chills, nausea, vomiting, dysphagia, trismus, malocclusion, drooling, sore throat. Patient does note she has been under increased stress lately and she has noticed herself clenching her jaw at times. She has also had occasional headaches which she describes as tension sensation. <RENARD Nichole Last Filed: 10/08/21 03:23> Related Data Allergies/adverse reactions: Allergies Allergy/AdvReac Type Severity Reaction Status Date / Time Penicillins Allergy Intermediate Hives / Verified 10/08/21 01:27 Red Face <RENARD Nichole Last Filed: 10/08/21 03:23> Review of Systems Review of Systems: CONSTITUTIONAL: Denies fever, chills, or sweats. EYES: Denies visual changes, redness, or discharge. ENT: Reports bilateral anterior ear/jaw pain. Denies rhinorrhea, congestion, otorrhea, sore throat, dysphagia, trismus, malocclusion, drooling. RESPIRATORY: Denies cough. GASTROINTESTINAL: Denies nausea, vomiting. NEUROLOGIC: Reports occasional headache. Denies numbness, or weakness. PSYCHIATRIC: Reports increased stress. <Nargis Anders PA-C - Last Filed: 10/08/21 03:23> All systems reviewed & are unremarkable except as noted in HPI and below <Nargis Anders PA-C - Last Filed: 10/08/21 03:23> PMFSH Past Medical History Medical History: Medical History (Updated 10/08/21 @ 03:06 by Nargis Anders PA-C) GERD (gastroesophageal reflux disease) Hypertension IBS (irritable bowel syndrome) UTI (urinary tract infection) <Nargis Anders PA-C - Last Filed: 10/08/21 03:23> Surgical History Surgical History: Surgical History History of <Nargis Anders PA-C - Last Filed: 10/08/21 03:23> Social History Social History: Social History Smoking status: Never smoker Substance use: never Gender identity (if verbalized by the patient): Female <Nargis Anders PA-C - Last Filed: 10/08/21 03:23> Exam Narrative: GENERAL: Well appearing, well-nourished, non-toxic, in no acute distress. HEAD: Normocephalic, atraumatic. EYES: PERRL/EOMI, conjunctivae clear bilaterally. NOSE: Normal, no drainage EARS: TMS clear, with good light reflex. No erythema or bulging. No EAC swelling/erythema bilaterally. No tenderness with tragal palpation or pinna manipulation. No mastoid tenderness or erythema. Tenderness over TMJ joints bilaterally. Clicking and popping noted with full opening of mouth, worse on R than L. THROAT: Pharynx clear. Mild tonsillar hyperthrophy. No erythema or exudate. MMs moist. NECK: Supple. No adenopathy, n
== END 2021-10-08 03:28 | disposition home or self-care (01) ==
PROVIDERS: Emergency Provider Emergency Medicine; PCP Family Medicine
DX: M26.603 Bilateral temporomandibular joint disorder, unspecified (principal); I10 Essential (primary) hypertension; K21.9 Gastro-esophageal reflux disease without esophagitis; K58.9 Irritable bowel syndrome, unspecified; Z87.442 Personal history of urinary calculi
CPT/HCPCS: 96372; 99283; J1885

== ENCOUNTER 2021-11-20 14:37 | Emergency (ER) | payer OTHER, SELFPAY ==
[2021-11-20] VITALS (17 sets, daily range): BP systolic 130–150; BP diastolic 79–104; PULSE 78–93; RESP 15–28; TEMP 36.3; O2SAT 98–100
--- NOTE | ~2021-11-20 | XR_ITS ---
EXAMINATION: XR chest 2V DATE: 11/20/2021 15:17 INDICATION: Palpitations. TECHNIQUE: Frontal and lateral views of the chest were obtained. COMPARISON: Chest 2 views 07/17/20 FINDINGS: The chest demonstrates clear lungs without pneumonia, pleural effusion, or pneumothorax. Th e heart size is normal. IMPRESSION: 1. No acute cardiopulmonary disease. Reviewed, dictated and finalized at location B.
--- NOTE | 2021-11-20 14:52 | ECG_ITS ---
Measurements Intervals [place] Rate: 82 P: 41 AR: 138 QRS: 5 QRSD: 75 T: 23 QT: 363 QTc: 426 Interpretive Statements SINUS RHYTHM VOLTAGE CRITERIA FOR LVH BORDERLINE ECG Electronically Signed On 11-20-2021 15:32:37 CDT by Wilmer Martin D.O.
--- NOTE | 2021-11-20 14:56 | ED.SOB ---
HPI - SOB/Dyspnea General Chief Complaint: Shortness of Breath/Dyspnea Stated Complaint: rapid heart rate and shortness of breath Time Seen by Provider: 11/20/21 14:46 History of Present Illness HPI Narrative: 31-year-old female presents to the emergency room for evaluation of palpitations for 3 days. Patient states she is having palpitations the last 1 to 3 seconds they are accompanied with shortness of breath. Patient denies any alleviating or aggravating factors. Patient states that she takes metoprolol randomly for a history of PSVT. Patient states 2 years ago she was diagnosed with PSVT, had a normal echo and normal treadmill test. Patient was seen at outside emergency room yesterday for similar symptoms and was told she needs a follow-up with cardiology. Related Data Home Medications Medication Instructions Recorded Confirmed metoprolol succinate 25 mg capsule 25 mg PO DAILY 10/15/21 10/15/21 sprinkle, ext. release 24 hr Allergies Allergy/AdvReac Type Severity Reaction Status Date / Time Penicillins Allergy Intermediate Hives / Verified 11/20/21 14:47 Red Face Review of Systems Review of Systems: CONSTITUTIONAL: Denies fever, chills, or sweats. EYES: Denies visual changes, redness, or discharge. ENT: Denies rhinorrhea, congestion, sore throat, or otalgia. CARDIOVASCULAR: Reports chest pain and palpitations RESPIRATORY: Reports shortness of breath GASTROINTESTINAL: Denies abdominal pain, nausea, vomiting, or diarrhea. GENITOURINARY: Denies dysuria or hematuria. SKIN: Denies rash or itching. MUSCULOSKELETAL: Denies back pain, joint pain, or myalgia. NEUROLOGIC: Denies headache, numbness, dizziness, or weakness. PSYCHIATRIC: Denies anxiety or depression. [facility] Past Medical History Medical History GERD (gastroesophageal reflux disease) Hypertension IBS (irritable bowel syndrome) UTI (urinary tract infection) Surgical History Surgical History History of Social History Social History Smoking status: Never smoker Alcohol intake: never Substance use: never Gender identity (if verbalized by the patient): Female Exam Narrative: GENERAL: Well-appearing, well-nourished, and in no acute distress. HEAD: Normocephalic, atraumatic. EYES: PERRLA and EOMI. CHEST: Clear to auscultation. No respiratory distress. No wheezes rales or rhonchi HEART: Regular rate and rhythm. No murmur heard. Normal peripheral pulses. ABDOMEN: Soft, nontender, nondistended, normal active bowel sounds. EXTREMITIES: Normal range of motion. No edema. SKIN: Warm, dry, no rash. NEURO: No focal deficits. Alert and oriented x3. PSYCH: Normal mood and affect. Course Vital Signs Vital signs: Vital Signs Temperature 36.3 C L 11/20/21 14:43 Pulse Rate 92 11/20/21 14:43 Respiratory Rate 16 11/20/21 14:43 Blood Pressure 130/79 11/20/21 14:43 Pulse Oximetry 99 11/20/21 14:43 Temperature 36.3 C L 11/20/21 14:43 Pulse Rate 78 11/20/21 16:17 Respiratory Rate 23 H 11/20/21 16:17 Blood Pressure 141/97 H 11/20/21 16:17 Pulse Oximetry 100 11/20/21 16:17 MDM - SOB/Dyspnea MDM Narrative Medical decision making narrative: 31-year-old female presented emergency room for evaluation of palpitations shortness of breath. Patient states that she had been having symptoms for about 3 days. States the palpitations last anywhere from a 1 to 5 seconds take her breath away. Patient does have a similar history, which she is taking metoprolol intermittently for. Patient was seen at an outside emergency room yesterday for the same complaint. CBC and CMP are unremarkable. TSH is within normal limits. Troponin was negative. EKG showed normal sinus rhythm with no ectopy. D-dimer was negative. Lab Data Result diagrams: 11/20/21 14:56
[2021-11-20 15:04] LABS: Basophils Percent Auto 0.6 % (0.2-1.2); Eosinophils Absolute Auto 0.1 K/mm3 (0-0.3); Eosinophils Percent Auto 1.9 % (0-4.4); Hematocrit 35.7 % (37.0-47.0); Hemoglobin 11.5 g/dL (12.0-15.0); Immature Granulocyte Absolute 0.01 K/mm3 (0.00-0.031); Immature Granulocyte Percent A 0.2 % (0-0.5); Lymphocytes Percent Auto 29.5 % (18.3-44.2); Mean Corpuscular HGB Conc 32.2 g/dl (32-36); Mean Corpuscular Volume 87.1 fl (80-100); Mean Platelet Volume 12.2 fl (7.4-10.4); Monocytes Absolute Auto 0.4 K/mm3 (0.1-0.6); Monocytes Percent Auto 7.8 % (2.6-8.5); Neutrophils Absolute Auto 2.9 K/mm3 (1.3-6.7); Platelet Count Result 201 k/mm3 (150-375); Red Cell Distribution Width 13.3 % (11.5-14.5); White Blood Count 4.8 K/mm3 (4.5-10.0)
[2021-11-20] MEDS: SODIUM CHLORIDE 0.9% IV 1,000 ML 999 ML IV CONT (15:06)
[2021-11-20 15:13] LABS: Alanine Aminotransferase 10 U/L (4-35); Albumin Level 4.1 g/dL (3.5-5.1); Alkaline Phosphatase 60 U/L (38-126); Anion Gap 6 mmol/L (8-16); Aspartate Amino Transferase 20 U/L (14-36); Bilirubin,Total 0.4 mg/dL (0.2-1.3); Blood Urea Nitrogen 10 mg/dL (7-17); Calcium 8.7 mg/dL (8.4-10.2); Carbon Dioxide 26 mmol/L (22-30); Chloride 104 mmol/L (98-107); Estimated CRCL calculation 83 ml/min; Estimated Glomerular Filt Rate > 60; Glucose 109 mg/dL (65-110); Sodium 136 mmol/L (137-145)
[2021-11-20 15:21] LABS: D Dimer < 0.27 ug/mL (<0.48)
[2021-11-20 15:25] LABS: Troponin I < 0.012 ng/mL (0.000-0.034)
[2021-11-20 16:40] LABS: Thyroid Stimulating Hormone 0.971 uIU/mL (0.465-4.680)
== END 2021-11-20 17:12 | disposition home or self-care (01) ==
PROVIDERS: Emergency Provider Nurse Practitioner Family; PCP Family Medicine
DX: R00.2 Palpitations (principal); K21.9 Gastro-esophageal reflux disease without esophagitis; I10 Essential (primary) hypertension; K58.9 Irritable bowel syndrome, unspecified; Z87.440 Personal history of urinary (tract) infections; R94.31 Abnormal electrocardiogram [ECG] [EKG]
CPT/HCPCS: 36415; 71046; 80053; 84443; 84484; 85025; 85380; 93005; 96360; 99284; J7030

== ENCOUNTER 2022-01-02 15:37 | Emergency (ER) | payer OTHER, SELFPAY ==
[2022-01-02 15:45] VITALS: BP 139/101; PULSE 122; RESP 16; TEMP 38.7; O2SAT 98
--- NOTE | 2022-01-02 16:12 | ED.EAR ---
HPI - Ear Problem General Chief complaint: Ear Stated complaint: ear pain Time Seen by Provider: 01/02/22 16:13 Source: patient and RN notes reviewed Mode of arrival: ambulatory Limitations: no limitations History of Present Illness HPI Narrative: 31-year-old female presented for complaint of head ache, sinus congestion, bilateral ear pain and sore throat, onset last night. She denies cough, shortness of breath, wheezing, fevers or chills. She is febrile upon arrival today. States her son has been sick for about 1 week. She is not boosted for COVID or vaccinated for flu. She has not taken anything for symptoms. She reports 2 weeks ago diagnosed with Sjogren's syndrome, she started taking hydroxychloroquine briefly, but stopped when her son got sick. Related Data Home Medications Medication Instructions Recorded Confirmed duloxetine 30 mg capsule,delayed 30 mg PO DAILY 01/02/22 01/02/22 release hydroxychloroquine 200 mg tablet 200 mg PO DIRECTED 01/02/22 01/02/22 metronidazole 0.75 % vaginal gel 1 ea vaginal DIRECTED 01/02/22 01/02/22 omeprazole 20 mg capsule,delayed 20 cap PO DAILY 01/02/22 01/02/22 release Allergies Allergy/AdvReac Type Severity Reaction Status Date / Time Penicillins Allergy Intermediate Hives / Verified 01/02/22 15:52 Red Face Review of Systems Review of Systems: ROS negative except as in HPI PMFSH Past Medical History Medical History GERD (gastroesophageal reflux disease) Hypertension IBS (irritable bowel syndrome) UTI (urinary tract infection) Surgical History Surgical History History of Social History Social History Smoking status: Never smoker Alcohol intake: never Substance use: never Gender identity (if verbalized by the patient): Female Exam Narrative: GENERAL: well-appearing EYES: conjunctivae clear ENT: Mucous membranes moist. TM pearly gottlieb with normal light reflex bilaterally; no tragal tenderness. Oropharynx erythematous without lesions or exudate, no drooling, no hoarseness, no trismus, uvula midline. CHEST: Clear to auscultation, breath sounds equal. HEART: Regular rate and rhythm. No murmur heard. SKIN: Warm, dry, no rash. NEURO: Alert and oriented x3. PSYCH: Normal mood and affect Course Course Emergency Course: Patient is aware of diagnosis, understands and agrees to treatment plan. Anticipatory guidance given. Patient agrees to follow-up as directed and is aware of reasons to seek care at the emergency department. Portions of this record may have been created with voice recognition software Level of Care: Express Care Visit Vital Signs Vital signs: Vital Signs Temperature 101.6 F H 01/02/22 15:45 Pulse Rate 122 H 01/02/22 15:45 Respiratory Rate 16 01/02/22 15:45 Blood Pressure 139/101 H 01/02/22 15:45 Pulse Oximetry 98 01/02/22 15:45 Oxygen Delivery Room Air 01/02/22 15:45 Temperature 101.6 F H 01/02/22 15:45 Pulse Rate 122 H 01/02/22 15:45 Respiratory Rate 16 01/02/22 15:45 Blood Pressure 139/101 H 01/02/22 15:45 Pulse Oximetry 98 01/02/22 15:45 Oxygen Delivery Room Air 01/02/22 15:45 reviewed Medical Decision Making MDM Narrative Medical decision making narrative: covid, flu strep negative. PE negative. Advised supportive treatments. She is appropriate for outpatient treatment and follow-up Differential Diagnosis Differential Diagnosis: Influenza, covid, sinusitis, OM, strep pharyngitis, URI Vital Signs Vital Signs: Vital Signs Temperature 101.6 F H 01/02/22 15:45 Pulse Rate 122 H 01/02/22 15:45 Respiratory Rate 16 01/02/22 15:45 Blood Pressure 139/101 H 01/02/22 15:45 Pulse Oximetry 98 01/02/22 15:45 Oxygen Delivery Room Air 01/02/22 15:45 Temperature 101.6 F H 0
== END 2022-01-02 16:57 | disposition home or self-care (01) ==
PROVIDERS: Emergency Provider Nurse Practitioner Family
DX: J06.9 Acute upper respiratory infection, unspecified (principal); K21.9 Gastro-esophageal reflux disease without esophagitis; I10 Essential (primary) hypertension; Z20.822 Contact with and (suspected) exposure to COVID-19
CPT/HCPCS: 87081; 87426; 87804; 87880; 99213; C9803; G0463

== ENCOUNTER 2022-06-24 10:02 | Emergency (ER) | payer OTHER, SELFPAY ==
[2022-06-24 10:15] VITALS: BP 143/96; PULSE 96; RESP 12; TEMP 36.2; O2SAT 100
--- NOTE | 2022-06-24 10:25 | ED.URI ---
HPI - URI/Sore Throat General Chief Complaint: Upper Respiratory Infection Stated Complaint: Running Nose, Sore Throat, Cough, Ears Irritation Time Seen by Provider: 06/24/22 10:36 Source: patient, RN notes reviewed and old records reviewed Mode of arrival: ambulatory Limitations: no limitations History of Present Illness HPI Narrative: 31-year-old female presents to the [facility] with 3 weeks of lingering nasal congestion and sore throat. Patient reports 3 weeks ago she was sick, thought she may have had the flu. MD elicited complaint: sore throat and nasal congestion Related Data Home Medications Medication Instructions Recorded Confirmed duloxetine 30 mg capsule,delayed 30 mg PO DAILY 01/02/22 01/02/22 release hydroxychloroquine 200 mg tablet 200 mg PO DIRECTED 01/02/22 01/02/22 metronidazole 0.75 % (37.5 mg/5 1 ea vaginal DIRECTED 01/02/22 01/02/22 gram) vaginal gel omeprazole 20 mg capsule,delayed 20 cap PO DAILY 01/02/22 01/02/22 release Allergies Allergy/AdvReac Type Severity Reaction Status Date / Time Penicillins Allergy Intermediate Hives / Verified 01/02/22 15:52 Red Face Review of Systems Review of Systems: All systems reviewed & are unremarkable except as noted in HPI and below Constitutional: Constitutional: Reports no additional constitutional complaints Eyes: Eyes: Reports no additional eye complaints ENT: Reports as per HPI, Reports nasal congestion and Reports sore throat Cardiovascular: Cardiovascular: Reports no additional cardiovascular complaints, Denies chest pain and Denies dyspnea Respiratory: Respiratory: Reports no additional respiratory complaints, Denies chest congestion, Denies cough and Denies dyspnea Gastrointestinal: Gastrointestinal: Reports no additional gastrointestinal complaints, Denies abdominal pain, Denies nausea and Denies vomiting Musculoskeletal: Musculoskeletal: Reports no additional musculoskeletal complaints Integumentary/Breasts: Skin/Breast: Reports system reviewed and no additional complaints, except as docu Neurologic: Reports system reviewed and no additional complaints, except as documented Psychiatric: Psychiatric: Reports no additional psychiatric complaints Allergic/Immunologic: Allergic/Immunologic: Reports no additional allergic/immunologic complaints PMFSH Past Medical History Medical History GERD (gastroesophageal reflux disease) Hypertension IBS (irritable bowel syndrome) UTI (urinary tract infection) Surgical History Surgical History History of Social History Social History Smoking status: Never smoker Alcohol intake: never Substance use: never Gender identity (if verbalized by the patient): Female Comments At the time of my signature, I reviewed and agree with the nursing past medical, surgical, social, and family history. There is no relevant family history pertinent to the patient complaint. Exam Const: General: cooperative, healthy appearing, comfortable, no acute distress, well developed, alert, average body habitus and well nourished Nutritional Appearance: average body habitus and well nourished Orientation/consciousness: patient oriented x3 Limitations: no limitations HENMT: Head: normal to inspection Ears: hearing grossly normal bilaterally and external ears normal Face/Nose/Sinus: Normal external nose present, Normal nares present, Normal nasal mucous membranes and turbinates present and normal facial exam Face and sinus: normal facial exam Mouth: Yes Normal oral and palatal mucosa present, Yes lip normal and Yes moist mucous membranes Throat: posterior oropharynx normal, uvula midline, abnormal tonsil (Tonsil stone left mid tonsil without increased erythema or swelling) and no uvular edema Eyes: General: appearance no
== END 2022-06-24 10:59 | disposition home or self-care (01) ==
PROVIDERS: Emergency Provider Nurse Practitioner; PCP Family Medicine
DX: J32.9 Chronic sinusitis, unspecified (principal); R09.82 Postnasal drip; J35.8 Other chronic diseases of tonsils and adenoids; K21.9 Gastro-esophageal reflux disease without esophagitis; I10 Essential (primary) hypertension
CPT/HCPCS: 99213; G0463

== ENCOUNTER 2022-09-05 09:15 | Emergency (ER) | payer OTHER, SELFPAY ==
--- NOTE | ~2022-09-05 | XR_ITS ---
EXAMINATION: XR wrist RT min 3V DATE: 09/05/2022 11:34 INDICATION: Right wrist injury and pain. TECHNIQUE: 4 views of right wrist were obtained. COMPARISON: None. FINDINGS: Bone alignment is normal. No fracture. Joint spaces are well maintained. IMPRESSION: 1. Normal right wrist. Reviewed, dictated and finalized at location A. HEALTH THERAPIST IMPRESSION: 1. Normal right wrist.
[2022-09-05 09:54] VITALS: BP 142/88; PULSE 85; RESP 14; TEMP 36.9; O2SAT 100
[2022-09-05 11:21] VITALS: BP 145/98; PULSE 73; RESP 18; O2SAT 100
--- NOTE | 2022-09-05 12:10 | ED.UPPEXIN ---
HPI - Extremity Injury (Upper) General Chief Complaint: Extremity Injury, Upper Stated Complaint: Right wrist pain x 1 month Time Seen by Provider: 09/05/22 11:41 History of Present Illness HPI narrative: Patient is a 31-year-old female here for evaluation of right wrist pain for the past month. Denies obvious trauma or injury, states that she was lifting heavy objects the day before the pain came on. States the pain is located to her distal ulna. She is right-handed. Worse with movements. Had good relief from ibuprofen but stopped taking this. No numbness, tingling, fevers, chills, systemic symptoms. Related Data Home Medications Medication Instructions Recorded Confirmed duloxetine 30 mg capsule,delayed 30 mg PO DAILY 01/02/22 01/02/22 release hydroxychloroquine 200 mg tablet 200 mg PO DIRECTED 01/02/22 01/02/22 metronidazole 0.75 % (37.5 mg/5 1 ea vaginal DIRECTED 01/02/22 01/02/22 gram) vaginal gel omeprazole 20 mg capsule,delayed 20 cap PO DAILY 01/02/22 01/02/22 release Allergies Allergy/AdvReac Type Severity Reaction Status Date / Time Penicillins Allergy Intermediate Hives / Verified 09/05/22 09:15 Red Face Review of Systems Review of Systems: Gen.: Denies fevers or chills Eyes: Denies eye pain or visual change ENT: Denies congestion Respiratory: Denies shortness of breath or cough CV: Denies chest pain or palpitations GI: Denies abdominal pain nausea, emesis or diarrhea denies burning, urgency, frequency or hematuria Musculoskeletal: Reports right wrist pain Neuro: Denies numbness, tingling, weakness or focal weakness Skin: Denies rash Except as documented, all other systems reviewed and negative [facility] Past Medical History Medical History GERD (gastroesophageal reflux disease) Hypertension IBS (irritable bowel syndrome) UTI (urinary tract infection) Surgical History Surgical History History of Social History Social History Smoking status: Never smoker Alcohol intake: never Substance use: never Living arrangements: alone Gender identity (if verbalized by the patient): Female Exam Narrative: Gen: Alert, oriented, no acute distress Eyes: EOMI, no icterus Pulm: Respirations even and unlabored, symmetric thorax expansion, no audible stridor or visible cyanosis CV: Regular rate per telemetry GI: No distension, no voluntary/involuntary guarding Neuro: AOx4, moves all extremities without apparent difficulty or weakness, follows commands MSK: Tenderness to palpation along the distal ulna. No deformities noted to wrist or hand. Full range of motion in fingers without pain. Reports pain with ulnar and radial deviation of the right wrist. No tenderness palpation along the olecranon or shoulder. Skin: No jaundice, no visible bruising, rashes, lesions or wounds on exposed skin Psych: Normal mood/affect, insight/judgement good, adequate fund of knowledge, recent/remote memory intact Course Vital Signs Vital signs: Vital Signs Temperature 98.4 F 09/05/22 09:54 Pulse Rate 85 09/05/22 09:54 Respiratory Rate 14 09/05/22 09:54 Blood Pressure 142/88 H 09/05/22 09:54 Pulse Oximetry 100 09/05/22 09:54 Oxygen Delivery Room Air 09/05/22 09:54 Temperature 98.4 F 09/05/22 09:54 Pulse Rate 72 09/05/22 12:31 Respiratory Rate 15 09/05/22 12:31 Blood Pressure 139/78 09/05/22 12:31 Pulse Oximetry 99 09/05/22 12:31 Oxygen Delivery Room Air 09/05/22 11:21 MDM - Extremity Injury (Upper) MDM Narrative Medical decision making narrative: 31-year-old female here for evaluation of right wrist pain over the past month. She has tenderness to palpation along the distal ulna. Plain films without acute disease. Likely wrist sprain or strain. Advised ibuprofe
[2022-09-05 12:31] VITALS: BP 139/78; PULSE 72; RESP 15; O2SAT 99
== END 2022-09-05 12:32 | disposition home or self-care (01) ==
PROVIDERS: Emergency Provider Physician Assistant
DX: M25.531 Pain in right wrist (principal); I10 Essential (primary) hypertension; K21.9 Gastro-esophageal reflux disease without esophagitis; K58.9 Irritable bowel syndrome, unspecified; Z87.440 Personal history of urinary (tract) infections
CPT/HCPCS: 73110; 99283

== ENCOUNTER 2023-09-27 08:47 | Emergency (ER) | payer OTHER, SELFPAY ==
[2023-09-27 09:05] VITALS: BP 135/97; PULSE 89; RESP 16; TEMP 37.1; O2SAT 100
--- NOTE | 2023-09-27 09:34 | ED.URI ---
HPI - URI/Sore Throat General Chief Complaint: Upper Respiratory Infection Stated Complaint: cough Time Seen by Provider: 09/27/23 09:35 Source: patient and RN notes reviewed Mode of arrival: ambulatory Limitations: no limitations History of Present Illness HPI Narrative: 32-year-old female presents with concern for one-week history of sinus congestion, drainage, sinus pressure, cough, productive cough, chest congestion. She denies fever, body aches, chills, sweats. She reports trying Mucinex without relief. MD elicited complaint: cough and nasal congestion Related Data Home Medications Medication Instructions Recorded Confirmed ergocalciferol (vitamin D2) 1,250 1,250 mcg PO WEEKLY 09/27/23 09/27/23 mcg (50,000 unit) capsule metoprolol succinate 25 mg 12.5 mg PO DAILY 09/27/23 09/27/23 tablet,extended release 24 hr Allergies Allergy/AdvReac Type Severity Reaction Status Date / Time Penicillins Allergy Intermediate Hives / Verified 09/27/23 09:17 Red Face Review of Systems Review of Systems: CONSTITUTIONAL: Denies malaise, chills, sweats, or fever. EYES: Denies visual changes, redness, or discharge. ENT: Reports rhinorrhea, congestion, sinus pain, and sore throat. CARDIOVASCULAR: Denies chest pain, palpitations, or edema. RESPIRATORY: Reports productive cough and chest congestion. Denies dyspnea. GASTROINTESTINAL: Denies abdominal pain, nausea, vomiting, diarrhea SKIN: Denies rash or itching. MUSCULOSKELETAL: Denies myalgia. NEUROLOGIC: Denies headache. All systems reviewed & are unremarkable except as noted in HPI and below PMFSH Past Medical History Medical History GERD (gastroesophageal reflux disease) Hypertension IBS (irritable bowel syndrome) UTI (urinary tract infection) Surgical History Surgical History History of Social History Social History Smoking status: Never smoker Alcohol intake: never Substance use: never Living arrangements: alone Gender identity (if verbalized by the patient): Female Comments At time of signature, agree with nursing past medical, surgical, social and family history. There is no relevant family history pertinent to the presenting complaint Exam Narrative: GENERAL: Well-appearing, well-nourished, and in no acute distress. HEAD: Normocephalic EYES: PERRLA, conjunctivae clear ENT: Nares clear, turbinates edematous and erythematous, clear discharge. Mucous membranes moist. TM pearly gottlieb with sharp light reflex bilaterally; no tragal tenderness. Oropharynx not erythematous without lesions. Tonsils not enlarged and without exudate, no drooling, no hoarseness, no trismus, uvula midline. NECK: Supple. No lymphadenopathy CHEST: Clear to auscultation, breath sounds equal. No wheezing, rhonchi, rales, or stridor. No respiratory distress, speaks in full sentences. HEART: Regular rate and rhythm. No murmur heard. SKIN: Warm, dry, no rash. NEURO: Alert and oriented x3. PSYCH: Normal mood and affect Course Course Emergency Course: Patient is aware of diagnosis, understands and agrees to treatment plan. Anticipatory guidance given. Patient agrees to follow-up as directed and is aware of reasons to seek care at the emergency department. Portions of this record may have been created with voice recognition software Level of Care: Express Care Visit Vital Signs Vital signs: Vital Signs Temperature 98.8 F 09/27/23 09:05 Pulse Rate 89 09/27/23 09:05 Respiratory Rate 16 09/27/23 09:05 Blood Pressure 135/97 H 09/27/23 09:05 Pulse Oximetry 100 09/27/23 09:05 Oxygen Delivery Room Air 09/27/23 09:05 Temperature 98.8 F 09/27/23 09:05 Pulse Rate 89 09/27/23 09:05 Respiratory Rate 16 09/27/23 09:05 Blood Pressure 135/97 H 09/27/23 09:05
== END 2023-09-27 10:01 | disposition home or self-care (01) ==
PROVIDERS: Emergency Provider Nurse Practitioner
DX: J32.9 Chronic sinusitis, unspecified (principal); J40 Bronchitis, not specified as acute or chronic; K21.9 Gastro-esophageal reflux disease without esophagitis; I10 Essential (primary) hypertension
CPT/HCPCS: 99213; G0463

== ENCOUNTER 2025-04-11 11:14 | Emergency (ER) | payer OTHER, SELFPAY ==
[2025-04-11 11:29] VITALS: BP 156/88; PULSE 75; RESP 16; TEMP 36.6; O2SAT 100
[2025-04-11 11:30] LABS: EDUAAPPEAR Cloudy; EDUABILI Negative (Negative); EDUABLOOD 3+ (Negative); EDUACOLOR1 Yellow; EDUAGLUCOSE Negative (Negative); EDUAKETONE Negative (Negative); EDUALEUKO 1+ (Negative); EDUANITRATE Negative (Negative); EDUAPH 5.5; EDUAPROTEIN 1+ (Negative); EDUASPGRAVITY 1.025; EDUAUROBILI 0.2
--- NOTE | 2025-04-11 11:41 | ED_ITS ---
HPI - Female Genitourinary General Chief complaint: Urogenital-Female Stated complaint: UTI Time Seen by Provider: 04/11/25 11:41 Source: patient Mode of arrival: ambulatory Limitations: no limitations History of Present Illness HPI Narrative: 34-year-old female presents with complaint of urinary frequency, urgency, dysuria for 1 week. Reports decreased output today. Afebrile. Has been taking [id number] azo and drinking cranberry juice without relief of symptoms. All systems reviewed and negative except as noted above. Related Data Home Medications ?Medication ?Instructions ?Recorded ?Confirmed ?Last Taken ?Type metoprolol succinate 25 mg 12.5 mg PO DAILY 09/27/23 0 08/13/24 Unknown History tablet,extended release 24 hr ibuprofen 800 mg tablet mg 04/11/25 Unknown History Allergies Allergy/AdvReac Type Severity Reaction Status Date / Time Penicillins Allergy Intermediate Hives / Verified 04/11/25 11:28 Red Face PMFSH Past Medical History Medical History Sjogren syndrome Hypertension GERD (gastroesophageal reflux disease) IBS (irritable bowel syndrome) UTI (urinary tract infection) Surgical History Surgical History History of Family History Family History Grandparent Breast cancer Mother Hypertension Esophageal cancer Father Diabetes mellitus Social History Social History Smoking status: Never smoker Alcohol intake: never Substance use: never Living arrangements: alone Gender identity (if verbalized by the patient): Female Comments At time of signature, agree with nursing past medical, surgical, social and family history. There is no relevant family history pertinent to the presenting complaint. Exam Narrative: GENERAL: This is a well-nourished, well-developed patient, in no apparent distress. HEAD: normocephalic, atraumatic. EYES: PERRL. Sclera clear/white. Vision is grossly intact. EARS: External ears normal NOSE: External nose normal NECK: Neck supple, non-tender without lymphadenopathy, masses or thyromegaly. CARDIOVASCULAR: Regular rate and rhythm without murmurs, gallops, or rubs. RESPIRATORY: Clear to auscultation. Breath sounds equal bilaterally. No wheezes, rales, or rhonchi. SKIN: warm, Dry, intact with no suspicious lesions or rash, good texture and turgor. NEURO: awake, alert, and oriented to person, place and time. There were no obvious focal neurologic abnormalities. EXTREMITIES: No joint tenderness, effusion, or edema noted. Course Course Level of Care: Express Care Visit Vital Signs Vital signs: Vital Signs Temperature 36.6 C 04/11/25 11:29 Pulse Rate 75 04/11/25 11:29 Respiratory Rate 16 04/11/25 11:29 Blood Pressure 156/88 H 04/11/25 11:29 Pulse Oximetry 100 04/11/25 11:29 Temperature 36.6 C 04/11/25 11:29 Pulse Rate 75 04/11/25 11:29 Respiratory Rate 16 04/11/25 11:29 Blood Pressure 156/88 H 04/11/25 11:29 Pulse Oximetry 100 04/11/25 11:29 Reviewed MDM - Female Genitourinary MDM Narrative Medical decision making narrative: urinalysis positive leukocytes and blood. Urine culture ordered. Will treat patient with antibiotic due to patient's symptoms. Patient is well-appearing, nontoxic. Agrees with plan of care. Differential Diagnosis Differential diagnosis: Likely urinary tract infection Lab Data Labs: Lab Results 04/11/25 Range/Units 11:28 POC Urine Color Yellow POC Urine Clarity Cloudy POC Urine pH 5.5 POC Ur Specif [place] 1.025 POC Urine Protein 1+ (Negative) POC Ur Glucose (UA) Negative (Negative) POC Urine Ketones Negative (Negative) POC Urine Blood 3+ (Negative) POC Urine Nitrite Negative (Negative) POC Urine Bilirubin Negative (Negative) POC Urine Urobilinogen 0.2 POC U Leukocyte Esteras 1+ (Negative) Discharge Plan Discharge Clinical Impression: Urinary tract infection Patient Disposition: Home Condition: Stable Instructions: Antibiotic Form, Urinary Tract Infection in Women (ED) Additional Instructions: take antibiotic as prescribed until gone. Drink at least 64 oz of water a day. See your primary care physician if symptoms are not improving. If you have severe pain, fever, vomiting go to the ER. Patient Language: German Prescriptions: New sulfamethoxazole-trimethoprim [Bactrim DS] 800-160 mg tablet 1 tablet PO Q12H 5 Days Qty: 10 0RF No Action metoprolol succinate 25 mg tablet extended release 24 hr 12.5 mg PO DAILY ibuprofen 800 mg tablet Follow-up/Referrals: Gerald,Jose Romo MD [Primary Care Provider, Unknown] Stand Alone Forms: Work/School Release IP Time of Disposition: 11:45
== END 2025-04-11 11:50 | disposition home or self-care (01) ==
PROVIDERS: Emergency Provider Nurse Practitioner Family; PCP Family Medicine
DX: N39.0 Urinary tract infection, site not specified (principal); I10 Essential (primary) hypertension; K21.9 Gastro-esophageal reflux disease without esophagitis; M35.00 Sjogren syndrome, unspecified
CPT/HCPCS: 81003; 87086; 99213; G0463